=== PATIENT | female | born 1985 | race Caucasian/White ===

== ENCOUNTER 2018-01-30 06:06 | Emergency (ER) | payer OTHER ==
[~2018-01-30] VITALS: Ht 167.6 cm; Wt 81.7 kg
[~2018-01-30 06:06] MED LIST: AVIANE1 EACH PO; BACTRIM DS TAB1 EACH PO; CIPRODEX OTIC7.5 ML AS; CYCLOBENZAPRINE10 MG PO; HYDROCODON-ACE1 EA11 PO; IBUPROFEN800 MG PO; MELOXICAM7.5 MG PO; MILK OF MA400 MG/5 M PO; MIRTAZAPINE30 MG PO; MOTRIN IB200 MG PO; NORCO 5-325 TA1 EACH PO; PRENATAL CAPLE1 EACH PO; PROPRANOLOL HCL20 MG PO; TRANSDERM-SCOP1 EA TD
[2018-01-30] MEDS ORDERED: AUGMENTIN 875-1 EACH PO (06:30)
== END 2018-01-30 06:42 | disposition home or self-care (01) ==
LOC: ED 06:06
DX: J01.90 Acute sinusitis, unspecified (principal); J30.9 Allergic rhinitis, unspecified; F17.200 Nicotine dependence, unspecified, uncomplicated; Z88.7 Allergy status to serum and vaccine; Z79.899 Other long term (current) drug therapy
CPT/HCPCS: 99283

== ENCOUNTER 2019-07-24 08:22 | Inpatient (IN) | payer OTHER ==
[~2019-07-24] VITALS: Ht 165.1 cm; Wt 93.0 kg
--- OUTSIDE RECORDS SUMMARY | ~2019-07-24 | XMS | Clinical Summary ---
Demographics + + + | Address | [address] | | | [address] | | | [place] [address] | + + + | Home Phone | | + + + | Preferred Language | Unknown | + + + | Marital Status | Single | + + + | Sabianist Affiliation | Unknown | + + + | Race | Unknown | + + + | Ethnic Group | Unknown | + + + Author + + + | Author | [facility] | | | and [facility] | + + + | Organization | [facility] | | | and [facility] | + + + | Address | Unknown | + + + | Phone | Unavailable | + + + Support + + +---------+ + | Name | Relationship | Address | Phone | + + +---------+ + | Leia Ruiz | ECON | Unknown | | + + +---------+ + Care Team Providers + +------+ + | Care Resource Conservationist Name | Role | Phone | + +------+ + | Susana Chambers | PCP | | | PA-C | | | + +------+ + Allergies No Known Allergies Medications + + + +---------+------+------+-------+ | Medication | Sig | Dispensed | Refills | Star | End | Statu | | | | | | t | Date | s | | | | | | Date | | | + + + +---------+------+------+-------+ | varenicline | Take 1 mg by mouth 2 | | 0 | | | Activ | | (CHANTIX) 1 MG | times daily. | | | | | e | | tablet | | | | | | | + + + +---------+------+------+-------+ | cyclobenzaprine | Take 10 mg by mouth | | 0 | | | Activ | | (FLEXERIL) 10 mg | Daily. | | | | | e | | tablet | | | | | | | + + + +---------+------+------+-------+ | meloxicam | Take 5 mg by mouth | | 0 | | | Activ | | (VIVLODEX) 5 mg | Daily. | | | | | e | | capsule | | | | | | | + + + +---------+------+------+-------+ Active Problems Not on file Social History + +-------+ +--------+------+ | Tobacco Use | Types | Packs/Day | Years | Date | | | | | Used | | + +-------+ +--------+------+ | Never Assessed | | | | | + +-------+ +--------+------+ + + + | Sex Assigned at | Date Recorded | | | | + + + | Not on file | | + + + + + + + | Job Start Date | Occupation | Industry | + + + + | Not on file | Not on file | Not on file | + + + + + + + + | Travel History | Travel Start | Travel End | + + + + + + | No recent travel history available. | + + Last Filed Vital Signs + + + + + | Vital Sign | Reading | Time Taken | Comments | + + + + + | Blood Pressure | 109/72 | 09/22/2016 9:29 AM | | | | | PST | | + + + + + | Pulse | 86 | 09/22/2016 9:29 AM | | | | | PST | | + + + + + | Temperature | - | - | | + + + + + | Respiratory Rate | 18 | 09/22/2016 9:29 AM | | | | | PST | | + + + + + | Oxygen Saturation | - | - | | + + + + + | Inhaled Oxygen | - | - | | | Concentration | | | | + + + + + | Weight | 78.9 kg (174 lb) | 09/22/2016 9:29 AM | | | | | PST | | + + + + + | Height | 165.1 cm (5' 5") | 09/22/2016 9:29 AM | | | | | PST | | + + + + + | Body Mass Index | 28.96 | 09/22/2016 9:29 AM | | | | | PST | | + + + + + Plan of Treatment + + + + + | Health Maintenance | Due Date | Last Done | Comments | + + + + + | Vaccine: | | | | | Dtap/Tdap/Td (1 - | 6 | | | | Tdap) | | | | + + + + + | Cervical Cancer | | | | | Screening (Pap) | 7 | | | + + + + + | Vaccine: Influenza | | | | | (#1) | 9 | | | + + + + + Results Not on filefrom Last 3 Months Insurance + +--------+ +--------+ +---------+--------+ | Payer | Benefi | Subscriber | Effect | Phone | Address | Type | | | t Plan | ID | gurvinder | | | | | | / | | Dates | | | | | | Group | | | | | | + +--------+ +--------+ +---------+--------+ | [employer] | [employer] | [id number] | 08/25/19 | [phone] | | Medica | | MEDICAID HMO | HEALTH | | 17-Pre | 1 | | id | | | MDCD | | sent | | | | | | [place] | | | | | | + +--------+ +--------+ +---------+--------+ + +--------+ +--------+ + + | Guarantor Name | Accoun | Relation to | Date | Phone | Billing Address | | | t Type | Patient | of | | | | | | | | | | + +--------+ +--------+ + + | Barbara Ruiz | Person | Self [birth year] | [address] | | | al/Fam | | 1986 | [phone] | [address] [place], | | | christ | | | [address] (Home) | [place] [address] | + +--------+ +--------+ + + Advance Directives + + + + + | Type | Date Recorded | Patient | Explanation | | | | Pre Owned Sales Manager | | + + + + + | Power of | | | | | Pumper Gauger Apprentice | | | | + + + + + | Advance | | | | | Directive | | | | + + + + +
--- OUTSIDE RECORDS SUMMARY | ~2019-07-24 | XMS | Encounter Summary ---
Demographics + + + | Address | [address] | | | [address] | | | [place] [address] | + + + | Home Phone | | + + + | Preferred Language | Unknown | + + + | Marital Status | Single | + + + | Druze Affiliation | Unknown | + + + | Race | Unknown | + + + | Ethnic Group | Unknown | + + + Author + + + | Author | [facility] | | | and [facility] | + + + | Organization | [facility] | | | and [facility] [...] Team Providers + +------+ + | Care Dean Of Instruction Name | Role | Phone | + +------+ + PCP | Unavailable | + +------+ + Encounter Details +--------+ + + + + | Date | Type | Department | Care Team | Description | +--------+ + + + + | 11/27/ | Hospital | [facility] | | | | 2002 | Encounter | MED [facility] GENER[facility] OP | | | | | | CONV DEPT [address] | | | | | | [place], | | | | | | [place] [id number] | | | | | | [phone] | | | +--------+ + + + + Social History + +-------+ +--------+------+ | Tobacco [...] recent travel history available. | + + documented as of this encounter Plan of Treatment Not on filedocumented as of this encounter Visit Diagnoses Not on filedocumented in this encounter"
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
[~2019-07-24 08:22] MED LIST changes: +AUGMENTIN 875-1 EACH PO
--- NOTE | 2019-07-29 10:30 | NUR ---
07/29/19 1030 Sheets,Inga 1011 PT ARRIVED TO [facility] ROOM 104 ON RA, VSS. PT AWAKE AND TALKING TO RN. PT MOTHER AT BEDSIDE. 1025 BABY TO CHEST. PT REPORTS 1/10 PAIN AND TOLERBALE AT THIS TIME. PT DENIES NAUSEA.
--- NOTE | 2019-07-30 08:58 | OR ---
[address] [place], [place] [address] Signed DATE OF OPERATION: 07/29/2019 SURGEON: Sb Vu MD Patient of Dr. Vu. PREOPERATIVE DIAGNOSES: Term , previous section, and elective sterilization. POSTOPERATIVE DIAGNOSES: Term , previous section, and elective sterilization. PROCEDURES PERFORMED: Repeat low transverse segment section, delivery of live male , and bilateral salpingectomy. PROP DRAWER: Dr. Gerard. ANESTHESIA: Spinal. ESTIMATED BLOOD LOSS: 650 mL. COMPLICATIONS: None. DRAINS: None. FINDINGS: Live male infant; Apgars 8 / 9; weight 8 pounds 6 ounces. Normal uterus. Normal tubes and ovaries bilateral. DESCRIPTION OF OPERATION: The patient was brought to the operating room, placed in supine position. After adequate spinal anesthesia was obtained, she was prepped and draped in usual sterile fashion. Bosch catheter was placed in the bladder. A Pfannenstiel skin incision was made with a scalpel through the previous surgical scar. Subcutaneous tissue was Electronically Signed By: SB VU MD 07/30/19 0858 PATIENT NAME: LILIAN PALAFOX OPERATIVE REPORT DATE OF : [birth year] REPORT #: [id number] PHYSICIAN: SB VU MD PCP: CHELITA CHONG PA-C REPORT IS CONFIDENTIAL AND NOT TO BE RELEASED WITHOUT AUTHORIZATION [address] [address] [place], [place] [address] Signed dissected with the Bovie and the scalpel. The fascia was nicked with scalpel and extended in transverse fashion using curved scissors. The underlying abdominal musculature was bluntly and sharply along the midline using curved scissors. The peritoneum was identified and nicked with scissors, extended vertical fashion using curved scissors. The Babatunde self-retaining retractor was then inserted into the incision and tightened in place. The lower uterine segment was identified and was then carefully nicked in the midline using scalpel. Finger dissection was used to open the incision in transverse fashion. Bulging bag clear fluid came from the incision. This was opened. The 's head easily delivered from the incision. Nuchal cord was noted to be around the neck, once loosely. This was removed and the rest of the easily delivered from the incision. The cord was doubly clamped and cut, and the passed off table in good condition to awaiting nurse. The placenta was then manually removed. Uterine cavity was explored with a lap pad to remove any retained membranes. An angle stitch of 0 Monocryl was placed at one in the incision and a running locking stitch of 0 Monocryl starting at the other end used to close the incision. A 2nd running stitch of 0 Monocryl was used to imbricate the first layer. There was one small area of oozing just to the right of midline. This was controlled with a simple stitch of 0 Monocryl. There was also continued slight bleeding at the left angle. This was controlled with a [id number] stitch of 0 Monocryl, placed while having finger all on her behind the broad ligament to make sure no other structures were caught within the closure. When good hemostasis was noted, the entire pelvis was irrigated, suctioned, and examined. Any superficial bleeding spots were cauterized with a Bovie. After good hemostasis was obtained on the uterus, the tubal ligation was performed. The left fallopian tube was identified and grasped along its length with a two Excelsior clamps. The avascular portions of the mesosalpinx were opened with the Bovie and then Tawanna clamps placed across the mesosalpinx and then the tube cut away from the mesosalpinx and the two pedicles were stick-tied with 0 Vicryl suture. The proximal portion of the tube was then clamped and cut, removing the tube and a free tie of 0 Vicryl suture placed across the tubal end. Good hemostasis was noted. On the right side again two Chet clamps were used to grasp the fallopian tube and 2 avascular portions of mesosalpinx were opened with a Bovie. Tawanna clamps used to clamp the mesosalpinx, which was then cut and the pedicles stick-tied with 0 Vicryl suture. The 3rd avascular portion was then identified closer to the uterus. This was opened with the Bovie and then a Tawanna clamp placed across the mesosalpinx and cut, and thus pedicle stick-tied with 0 Vicryl suture. Once again, a Tawanna clamp was used to clasp the clamp across the tube and the tube cut and removed and this pedicle free tied with 0 Vicryl suture. This side was examined, noted to have slight bleeding near the proximal end of the mesosalpinx. This Electronically Signed By: SB VU MD 07/30/19 0858 PATIENT NAME: LILIAN PALAFOX OPERATIVE REPORT DATE OF : [birth year] REPORT #: [id number] PHYSICIAN: SB VU MD PCP: CHELITA CHONG PA-C REPORT IS CONFIDENTIAL AND NOT TO BE RELEASED WITHOUT AUTHORIZATION [address] [address] Signed was controlled with a [id number] stitch of 0 Vicryl suture. Both sides were carefully re-examined, noted to have good hemostasis. Both tubes were sent to Pathology for the identification. At this point, the Babatunde self-retaining retractor was removed and the sheet of ACell placed over the lower uterine segment to help with healing. The anterior wall peritoneum was then closed using a running stitch of 2-0 Vicryl suture. The abdominal musculature was reapproximated using interrupted stitches of 0 Vicryl suture. The abdominal wall incision was irrigated, suctioned, and examined. Any bleeding spots were cauterized with Bovie. Powdered ACell sprinkled on the abdominal musculature to help with healing. The fascia was then closed using two running stitches of 0 Vicryl suture meeting in the midline. Subcutaneous tissue was irrigated suctioned examined any bleeding spots cauterized with the Bovie. The remaining powdered ACell was sprinkled in the subcutaneous tissue, which was then closed using interrupted stitches of 3-0 Vicryl suture. The skin was reapproximated using skin clips. The patient tolerated the procedure well and went to recovery room in good condition. Sponge, needle, instrument count correct in the procedure, and the two fallopian tubes were sent to Pathology for pathology for identification. MD AWA Rob/ANTOLINL /[id number] Copies: ~ Electronically Signed By: SB VU MD 07/30/19 0858 PATIENT NAME: LILIAN PALAFOX OPERATIVE REPORT DATE OF : [birth year] REPORT #: [id number] PHYSICIAN: SB VU MD PCP: CHELITA CHONG PA-C REPORT IS CONFIDENTIAL AND NOT TO BE RELEASED WITHOUT AUTHORIZATION
--- NOTE | 2019-07-31 08:20 | PR ---
[facility] [address] [facility] [place] [address] Signed PP Progress Notes Datetime Report Generated by CPN: 07/31/2019 08:20 SUBJECTIVE: [id number] Pain: Within normal limits Nausea/Vomiting: Denies Vital Signs: [id number] Vital Signs: Reviewed; Within Normal Limits Notable Details: PP Hgb/Hct = 9.8/29.5 EXAM: [id number] Abdomen/Uterus: Normal Lochia: Normal Extremities: Normal Incision: Normal IMPRESSION/PLAN/PROCEDURES: [id number] Impression: Normal progression Other Impression: PP Anemia Plan: Discharge Procedures: None Progress Notes: Doing well, without complaint, wants to go home Signing Physician: Chuck Blackwell MD Copies: ~ *Electronically Signed* 07/31/19 08 CHUCK BLACKWELL MD PATIENT NAME: LILIAN PALAFOX PROGRESS NOTE DATE OF : 87 PHYSICIAN: CHUCK BLACKWELL MD RPT #: [id number] REPORT IS CONFIDENTIAL AND NOT TO BE RELEASED WITHOUT AUTHORIZATION
== END 2019-07-31 10:15 | disposition home or self-care (01) | DRG 784 ==
LOC: FBC 07-29 05:45
PROVIDERS: ADMIT General Practice
PROC: 0UT70ZZ Resection of Bilateral Fallopian Tubes, Open Approach (ICD-10-PCS; principal; 2019-07-29 06:45)
PROC: 10D00Z1 Extraction of Products of Conception, Low, Open Approach (ICD-10-PCS; principal; 2019-07-29 06:45)
DX: O34.211 Maternal care for low transverse scar from previous cesarean delivery (principal); O99.324 Drug use complicating childbirth; N85.8 Other specified noninflammatory disorders of uterus; Z3A.39 39 weeks gestation of pregnancy; Z37.0 Single live birth; Z30.2 Encounter for sterilization; O69.81X0 Labor and delivery complicated by cord around neck, without compression, not applicable or unspecified; O90.81 Anemia of the puerperium; D64.9 Anemia, unspecified; O32.2XX0 Maternal care for transverse and oblique lie, not applicable or unspecified; O99.334 Smoking (tobacco) complicating childbirth; F17.210 Nicotine dependence, cigarettes, uncomplicated; F12.90 Cannabis use, unspecified, uncomplicated; Z86.19 Personal history of other infectious and parasitic diseases
CPT/HCPCS: 01961; 36415; 85027; 88304; A9270; J0690; J1644; J2274; J2300; J2405; J2590; J7121